=== PATIENT | female | born 2000 | race Caucasian/White ===

== ENCOUNTER 2020-01-29 16:18 | Emergency (ER) | payer MEDICAID ==
[~2020-01-29] VITALS: Ht 162.6 cm; Wt 63.6 kg
[2020-01-29 16:33] VITALS: Ht 162.6 cm; Wt 63.6 kg
[2020-01-29 17:13] LABS: BASOPHILS 0.3 % (0-2); EOSINOPHILS 0.2 % (0-7); HEMATOCRIT 42.1 % (36.0-48.0); HEMOGLOBIN 13.5 g/dL (12-16); IMMATURE GRANULOCYTES 0.2 % (0-5); LYMPHOCYTES 18.3 % (15-50); MCHC 32.1 g/dL (31.0-37.0); MCV 90.3 fL (80.0-100.0); MEAN PLATELET VOLUME 9.7 fL (7.4-10.4); PLATELET COUNT 313 10x3/uL (130-400); RBC 4.66 10x6/uL (4.00-5.40); RDW 12.6 % (11.5-14.5); WBC 6.6 10x3/uL (4.8-10.8)
[2020-01-29 17:28] LABS: CALC OSMOLALITY 275 mosm/kg (275-300); CALCIUM 8.9 mg/dL (8.5-10.1); CARBON DIOXIDE 25.1 mmol/L (21.0-32.0); CHLORIDE - SERUM 104 mmol/L (98-107); CREATININE - SERUM 0.9 mg/dL (0.6-1.3); GLUCOSE 119 mg/dL (74-106); SODIUM 138 mmol/L (136-145); UREA NITROGEN 11 mg/dL (7-18); eGFR NON AFRICAN AMERICAN 84 mL/min (90-120)
[2020-01-29 17:35] LABS: ALBUMIN 3.7 g/dL (3.4-5.0); ALKALINE PHOSPHATASE 68 U/L (30-120); ALT (SGPT) 27 U/L (10-68); BILIRUBIN - TOTAL 0.47 mg/dL (0.2-1.3); PROTEIN - SERUM 8.9 g/dL (6.4-8.2)
[2020-01-29 19:12] LABS: BILIRUBIN NEGATIVE (NEGATIVE); GLUCOSE NEGATIVE (NEGATIVE); KETONE NEGATIVE (NEGATIVE); NITRITE NEGATIVE (NEGATIVE); UROBILINOGEN NORMAL (NORMAL)
[2020-01-29 19:13] LABS: EPITHELIAL CELLS 0-5 /hpf (0-5); RED CELLS - URINE 0-5 /hpf (0-5); WHITE CELLS - URINE >50 /hpf (NEGATIVE)
[2020-01-29 19:14] LABS: BACTERIA MANY /hpf (NEGATIVE)
[2020-01-29 19:19] LABS: UDS - AMPHET NEGATIVE QUAL (NEGATIVE); UDS - BARB NEGATIVE QUAL (NEGATIVE); UDS - BENZO NEGATIVE QUAL (NEGATIVE); UDS - COCAINE NEGATIVE QUAL (NEGATIVE); UDS - OPIATE NEGATIVE QUAL (NEGATIVE); UDS - PCP NEGATIVE QUAL (NEGATIVE); UDS - THC NEGATIVE QUAL (NEGATIVE)
[2020-01-29 19:25] LABS: HCG SERUM NEGATIVE (NEGATIVE)
[2020-01-29] MEDS ORDERED: MACROBID100 MG PO (21:18)
[2020-01-29 21:45] VITALS: BP 117/74
== END 2020-01-29 21:46 | disposition home or self-care (01) ==
LOC: D.ER 16:18
PROVIDERS: Family Medicine
DX: S00.03XA Contusion of scalp, initial encounter (principal); X58.XXXA Exposure to other specified factors, initial encounter; R51 Headache; N39.0 Urinary tract infection, site not specified